=== PATIENT | female | born 1965 | race Asian ===

== ENCOUNTER 2017-10-11 19:35 | Emergency (ER) | payer BC | END 2017-10-11 20:31 | disposition home or self-care (01) | LOC: FTE 19:35 | DX: L02.411 Cutaneous abscess of right axilla (principal) | CPT/HCPCS: 99284 ==

== ENCOUNTER → 2019-04-26 | Outpatient (CLI) | payer BC | END | disposition home or self-care (01) | LOC: RAD 12:31 | DX: M47.892 Other spondylosis, cervical region (principal); M25.511 Pain in right shoulder; M54.5 Low back pain | CPT/HCPCS: 72040; 72100; 73030-RT ==